=== PATIENT | female | born 1985 | race Caucasian/White ===

== ENCOUNTER → 2021-02-24 | Outpatient (CLI) | payer OTHER ==
[~2021-02-24] MED LIST: APRISO0.375 GM PO; BENTYL 20MG TAB20 MG PO; COLACE 100MG C100 MG PO; DICYCLOMINE HCL20 MG PO; LACTULOSE10 GM/15 M PO; MIRENA1 EACH PV; PANTOPRAZOLE SO40 MG PO; PEPCID20 MG PO; ZANTAC150 MG PO; ZOFRAN ODT 4 MG4 MG PO; ZOFRAN4 MG PO
[2021-02-24 10:37] LABS: HEMOGLOBIN 13.8 gm/dl (12.3-15.3); RED BLOOD COUNT 5.03 M/UL (4.00-5.10)
[2021-02-24 11:17] LABS: BUN/CREATININE RATIO 18 (0-10)
[2021-02-25 12:15] LABS: RHEUMATOID ARTHRITIS FACTOR <10.0 IU/mL (0.0-13.9)
== END ==
LOC: LAB 09:58
PROVIDERS: Nurse Practitioner Family
DX: M25.50 Pain in unspecified joint (principal); D89.9 Disorder involving the immune mechanism, unspecified; R76.8 Other specified abnormal immunological findings in serum; M79.10 Myalgia, unspecified site
CPT/HCPCS: 36415; 80053; 82550; 83520; 85025; 85652; 86140; 86200; 86431

== ENCOUNTER → 2021-03-12 | Outpatient (CLI) | payer OTHER | LOC: EXRD 07:49 | DX: R74.8 Abnormal levels of other serum enzymes (principal); Z90.49 Acquired absence of other specified parts of digestive tract | CPT/HCPCS: 76705 ==

== ENCOUNTER → 2021-07-01 | Outpatient (CLI) | payer OTHER | LOC: EXRD 14:28 | DX: N80.9 Endometriosis, unspecified (principal); N92.1 Excessive and frequent menstruation with irregular cycle; N83.201 Unspecified ovarian cyst, right side | CPT/HCPCS: 76830 ==

== ENCOUNTER → 2021-11-12 | Outpatient (CLI) | payer OTHER ==
[~2021-11-12] MED LIST changes: +ENDOCET 5-3251 EACH PO
[2021-11-12 11:35] LABS: HEMOGLOBIN 14.2 gm/dl (12.3-15.3); RED BLOOD COUNT 5.39 M/UL (4.00-5.10)
[2021-11-12 12:12] LABS: BUN/CREATININE RATIO 11 (0-10)
== END ==
LOC: CT 11:13
PROVIDERS: Internal Medicine Gastroenterology
DX: K50.00 Crohn's disease of small intestine without complications (principal); K76.0 Fatty (change of) liver, not elsewhere classified
CPT/HCPCS: 36415; 80053; 82150; 83690; 85027; Q9967

== ENCOUNTER 2021-11-18 02:23 | Emergency (ER) | payer OTHER ==
[~2021-11-18 02:23] MED LIST changes: -ENDOCET 5-3251 EACH PO
[2021-11-18 03:29] LABS: HEMOGLOBIN 15.2 gm/dl (12.3-15.3); RED BLOOD COUNT 5.67 M/UL (4.00-5.10); WHITE BLOOD COUNT 11.8 K/UL (4.5-11.0)
[2021-11-18 03:50] LABS: BUN/CREATININE RATIO 11 (0-10)
[2021-11-18] MEDS ORDERED: BENTYL 20MG TAB20 MG PO (04:59)
[2021-11-18] MEDS ORDERED: ZOFRAN ODT 4 MG4 MG PO (04:59)
[2021-11-18] MEDS ORDERED: ENDOCET 5-3251 EACH PO (07:01)
[2021-11-19] MEDS ORDERED: PREDNISONE 20 M20 MG GT (14:46)
[2021-11-19] MEDS ORDERED: FLAGYL 250 MG250 MG GT (14:46)
[2021-11-19] MEDS ORDERED: PERCOCET 5/325 T1 EA PO (14:46)
== END 2021-11-18 07:33 | disposition home or self-care (01) ==
LOC: ER1 02:23
PROVIDERS: Emergency Medicine
DX: R10.817 Generalized abdominal tenderness (principal); R11.2 Nausea with vomiting, unspecified; R19.7 Diarrhea, unspecified; F17.210 Nicotine dependence, cigarettes, uncomplicated; R00.0 Tachycardia, unspecified
CPT/HCPCS: 80053; 81001; 83690; 85025; 96361; 96372; 96374; 96375; 96376; 99284; J0500; J1100; J1170; J1885; J2270; J2405; J7040

== ENCOUNTER 2021-11-19 10:15 | Emergency (ER) | payer OTHER ==
[~2021-11-19 10:15] MED LIST changes: +ENDOCET 5-3251 EACH PO
[2021-11-19 11:20] LABS: HEMOGLOBIN 13.4 gm/dl (12.3-15.3)
[2021-11-19 11:25] LABS: RED BLOOD COUNT 5.03 M/UL (4.00-5.10)
[2021-11-19 11:45] LABS: BUN/CREATININE RATIO 19 (0-10)
[2021-11-19] MEDS ORDERED: PERCOCET 5/325 T1 EA PO (14:46)
[2021-11-19] MEDS ORDERED: FLAGYL 250 MG250 MG GT (14:46)
[2021-11-19] MEDS ORDERED: PREDNISONE 20 M20 MG GT (14:46)
== END 2021-11-19 15:00 | disposition home or self-care (01) ==
LOC: ER1 10:15
PROVIDERS: Family Medicine
DX: K50.90 Crohn's disease, unspecified, without complications (principal); K52.9 Noninfective gastroenteritis and colitis, unspecified; E11.9 Type 2 diabetes mellitus without complications
CPT/HCPCS: 80053; 80307; 81001; 83690; 85025; 96361; 96374; 96375; 99284; J0500; J2270; J2405; J7040; Q9967